=== PATIENT | female | born 1995 ===

== ENCOUNTER 2021-03-16 11:06 | Emergency (ER) | payer SELFPAY ==
[~2021-03-16] VITALS: Ht 167.6 cm; Wt 41.9 kg
[2021-03-16 11:27] VITALS: BP 138/91
== END 2021-03-16 12:33 | disposition home or self-care (01) ==
LOC: ED 12:27
DX: U07.1 COVID-19 (principal)
CPT/HCPCS: 99283; U0003; U0005